=== PATIENT | male | born 1955 | race Caucasian/White ===

== ENCOUNTER → 2018-02-23 | Outpatient (CLI) | payer OTHER ==
[2018-02-23 12:19] LABS: HEMATOCRIT 41.5 % (42.0-52.0); HEMOGLOBIN 14.6 g/dl (13.5-17.5); MEAN CORPUSCULAR HEMOGLOBIN 31.1 pg (27.0-33.0); MEAN CORPUSCULAR HGB CONC 35.2 g/dl (32.0-36.5); MEAN CORPUSCULAR VOLUME 88.3 fl (80.0-96.0); PLATELET COUNT, AUTOMATED 285 10^3/uL (150-450); RED CELL DISTRIBUTION WIDTH 12.5 % (11.5-14.5); WHITE BLOOD COUNT 5.3 10^3/uL (4.0-10.0)
[2018-02-23 12:31] LABS: APPEARANCE, URINE CLEAR (CLEAR); BACTERIA, URINE AUTO NEGATIVE (NEGATIVE); BILIRUBIN, URINE AUTO NEGATIVE (NEGATIVE); BLOOD, URINE BLOOD NEGATIVE (NEGATIVE); COLOR, URINE YELLOW (YELLOW); GLUCOSE, URINE (UA) AUTO NEGATIVE (NEGATIVE); KETONE, URINE AUTO NEGATIVE (NEGATIVE); LEUKOCYTE ESTERASE, URINE AUTO NEGATIVE (NEGATIVE); MUCUS, URINE SMALL (NEGATIVE); NITRITE, URINE AUTO NEGATIVE (NEGATIVE); PROTEIN, URINE AUTO NEGATIVE (NEGATIVE); RBC, URINE AUTO 2 /HPF (0-3); SPECIFIC GRAVITY URINE AUTO 1.018 (1.002-1.035); SQUAMOUS EPITHELIAL CELL UR AU 0 /HPF (0-6); UROBILINOGEN, URINE AUTO 0.2 mg/dL (0.0-2.0); WBC, URINE AUTO 1 /HPF (0-3)
[2018-02-23 12:34] LABS: INR 0.89; PROTHROMBIN TIME 12.1 SECONDS (12.4-14.5)
[2018-02-23 12:55] LABS: ALBUMIN 3.7 GM/DL (3.2-5.2); ALBUMIN/GLOBULIN RATIO 1.42 (1.00-1.93); ALKALINE PHOSPHATASE 96 U/L (45-117); ALT/SGPT 46 U/L (12-78); ANION GAP 7 MEQ/L (8-16); AST/SGOT 40 U/L (7-37); BILIRUBIN,TOTAL 0.4 MG/DL (0.2-1.0); BLOOD UREA NITROGEN 24 MG/DL (7-18); CALCIUM LEVEL 8.6 MG/DL (8.8-10.2); CARBON DIOXIDE LEVEL 26 MEQ/L (21-32); CHLORIDE LEVEL 107 MEQ/L (98-107); CREATININE FOR GFR 0.79 MG/DL (0.70-1.30); GLOMERULAR FILTRATION RATE > 60.0 (>49); GLUCOSE, FASTING 91 MG/DL (70-100); POTASSIUM SERUM 4.3 MEQ/L (3.5-5.1); SODIUM LEVEL 140 MEQ/L (136-145); TOTAL PROTEIN 6.3 GM/DL (6.4-8.2)
[2018-02-23 13:17] LABS: ERYTHROCYTE SEDIMENTATION RATE 8 mm/hr (0-20)
== END ==
LOC: M ADMPAT 10:24
DX: M17.12 Unilateral primary osteoarthritis, left knee (principal)

== ENCOUNTER 2018-03-16 07:31 | Inpatient (IN) | payer OTHER ==
[2018-03-16] MEDS ORDERED: LIDOCAINE 1% MDV 20ML VIAL SQ (07:45)
[2018-03-16] MEDS ORDERED: MIDAZOLAM INJ 2 MG/2 ML VIAL (J2250) As Ordered ×2 (08:20→09:07)
[2018-03-16] MEDS ORDERED: fentaNYL 100 MCG/2 ML INJECTION (J3010) As Ordered ×2 (08:20→09:07)
[2018-03-16] MEDS: ACETAMINOPHEN 500 MG TAB PO (08:40)
[2018-03-16] MEDS: LR 1,000 ML IV ×3 (08:45→12:30)
[2018-03-16] MEDS: MIDAZOLAM INJ 2 MG/2 ML VIAL (J2250) IV (09:00)
[2018-03-16] MEDS: fentaNYL 100 MCG/2 ML INJECTION (J3010) IV (09:00)
[2018-03-16] MEDS ORDERED: PROPOFOL 200 MG/20 ML VIAL As Ordered (09:07)
[2018-03-16] MEDS: TRANEXAMIC ACID 100 MG/ML 10ML VIAL As Ordered (09:09)
[2018-03-16] MEDS: EPINEPHrine INJ 1 MG/ML 1ML AMP As Ordered (09:10)
[2018-03-16] MEDS: ceFAZolin 1GM INJ (J0690 PER 500MG) As Ordered (09:10)
[2018-03-16] MEDS ORDERED: MIDAZOLAM INJ 5 MG/ML VIAL (J2250) As Ordered (10:11)
[2018-03-16] MEDS ORDERED: ePHEDrine SULFATE 25 MG/5 ML(5MG/ML) SYRINGE As Ordered (10:42)
[2018-03-16] MEDS: BUPIVACAINE LIPOSOME/PF 1.3% 20 ML VIAL (13.3MG/ML)(EXPAREL) As Ordered (11:12)
[2018-03-16] MEDS: BUPIVACAINE HCL 0.25% 10 ML VIAL As Ordered (11:13)
[2018-03-16] MEDS ORDERED: MORPHINE 1MG/ML IN 0.9% NACL 100ML IV BAG As Ordered (12:11)
[2018-03-16] MEDS ORDERED: diphenhydrAMINE INJ 50MG/ML VIAL (J1200) IV (12:15)
[2018-03-16] MEDS ORDERED: NALBUPHINE HCL 10 MG/ML AMP (J2300) IV (12:15)
[2018-03-16] MEDS ORDERED: MORPHINE 1MG/ML IN 0.9% NACL 100ML IV BAG IV (12:15)
[2018-03-16] MEDS ORDERED: EPIDURAL/PCA KEYS XX (12:15)
[2018-03-16] MEDS ORDERED: ONDANSETRON 4MG/2ML VIAL (J2405) IV ×2 (12:15→12:30)
[2018-03-16] MEDS ORDERED: NALOXONE INJ 0.4 MG/1 ML VIAL (J2310) IV (12:15)
[2018-03-16] MEDS ORDERED: fentaNYL 100 MCG/2 ML INJECTION (J3010) IV (12:30)
[2018-03-16] MEDS ORDERED: KETOROLAC 30 MG/ML VIAL (J1885) IV (12:30)
[2018-03-16] MEDS ORDERED: FLEET ENEMA PR (12:30)
[2018-03-16] MEDS ORDERED: PERCOCET 5MG/325MG TAB PO (12:30)
[2018-03-16] MEDS ORDERED: ALBUTEROL 90 MCG/ACT 8GM HFA INHALER INH (13:00)
[2018-03-16] MEDS: WARFARIN SOD 5 MG TAB PO (16:10)
[2018-03-16] MEDS: ADVAIR HFA 115/21MCG INHALER INH (19:52)
[2018-03-16] MEDS ORDERED: traZODone 50 MG TAB PO (21:00)
[2018-03-16] MEDS: traZODone 100 MG TAB PO (21:11)
[2018-03-16] MEDS: SENOKOT S TAB PO (21:11)
[2018-03-16] MEDS: PRAVASTATIN 20 MG TAB PO (21:11)
[2018-03-17] MEDS: LR 1,000 ML IV (01:16)
[2018-03-17] MEDS: ACETAMINOPHEN TAB 650MG DOSE (2X325MG) PO (02:23)
[2018-03-17 05:33] LABS: HEMATOCRIT 35.9 % (42.0-52.0); HEMOGLOBIN 12.8 g/dl (13.5-17.5); MEAN CORPUSCULAR HEMOGLOBIN 31.4 pg (27.0-33.0); MEAN CORPUSCULAR HGB CONC 35.7 g/dl (32.0-36.5); MEAN CORPUSCULAR VOLUME 88.2 fl (80.0-96.0); PLATELET COUNT, AUTOMATED 212 10^3/uL (150-450); RED BLOOD COUNT 4.07 10^6/uL (4.30-6.10); RED CELL DISTRIBUTION WIDTH 12.1 % (11.5-14.5); WHITE BLOOD COUNT 7.5 10^3/uL (4.0-10.0)
[2018-03-17 05:46] LABS: INR 1.05; PROTHROMBIN TIME 13.8 SECONDS (12.4-14.5)
[2018-03-17 06:01] LABS: ANION GAP 6 MEQ/L (8-16); BLOOD UREA NITROGEN 18 MG/DL (7-18); CALCIUM LEVEL 8.2 MG/DL (8.8-10.2); CARBON DIOXIDE LEVEL 29 MEQ/L (21-32); CHLORIDE LEVEL 102 MEQ/L (98-107); CREATININE FOR GFR 0.88 MG/DL (0.70-1.30); FREE THYROXINE INDEX 4.8 % (1.4-3.8); GLOMERULAR FILTRATION RATE > 60.0 (>49); GLUCOSE, FASTING 116 MG/DL (70-100); MAGNESIUM LEVEL 1.8 MG/DL (1.8-2.4); POTASSIUM SERUM 4.1 MEQ/L (3.5-5.1); SODIUM LEVEL 137 MEQ/L (136-145); T UPTAKE 39 % (33-40); THYROID STIMULATING HORMONE 0.191 uIU/ML (0.358-3.740); THYROXINE (T4) 12.3 UG/DL (4.5-12.0)
[2018-03-17] MEDS: LEVOTHYROXINE 50MCG TABLET (0.05MG) PO (06:23)
[2018-03-17] MEDS ORDERED: PERCOCET 5MG/325MG TAB PO (07:00)
[2018-03-17] MEDS: PANTOPRAZOLE 40MG TAB (PROTONIX) PO (07:13)
[2018-03-17] MEDS: ADVAIR HFA 115/21MCG INHALER INH ×2 (07:45→21:00)
[2018-03-17] MEDS: ONDANSETRON 4MG/2ML VIAL (J2405) IV (07:57)
[2018-03-17] MEDS ORDERED: ONDANSETRON 4 MG TAB (S0181) PO (08:00)
[2018-03-17] MEDS: INCRUSE ELLIPTA INH (09:00)
[2018-03-17] MEDS ORDERED: PANTOPRAZOLE 40MG TAB (PROTONIX) PO (09:00)
[2018-03-17] MEDS ORDERED: LEVOTHYROXINE 100MCG TABLET (0.1MG) PO (09:00)
[2018-03-17] MEDS: MECLIZINE 25 MG TABLET PO (09:46)
[2018-03-17] MEDS: MOM 30ML SUSPENSION UDC PO (09:46)
[2018-03-17] MEDS: MIRALAX *UNIT DOSE* 17GM PACKET PO (09:46)
[2018-03-17] MEDS: PERCOCET 5MG/325MG TAB PO ×4 (09:46→22:57)
[2018-03-17] MEDS: SENOKOT S TAB PO ×2 (09:46→21:37)
[2018-03-17] MEDS: ONDANSETRON 4 MG TAB (S0181) PO ×2 (12:34→18:30)
[2018-03-17] MEDS: WARFARIN SOD 5 MG TAB PO (17:47)
[2018-03-17] MEDS: traZODone 100 MG TAB PO (21:36)
[2018-03-17] MEDS: PRAVASTATIN 20 MG TAB PO (21:37)
[2018-03-18] MEDS: PERCOCET 5MG/325MG TAB PO ×2 (03:23→09:06)
[2018-03-18 06:20] LABS: HEMATOCRIT 35.8 % (42.0-52.0); HEMOGLOBIN 12.4 g/dl (13.5-17.5); MEAN CORPUSCULAR HGB CONC 34.6 g/dl (32.0-36.5); MEAN CORPUSCULAR VOLUME 89.5 fl (80.0-96.0); PLATELET COUNT, AUTOMATED 202 10^3/uL (150-450); RED CELL DISTRIBUTION WIDTH 12.2 % (11.5-14.5); WHITE BLOOD COUNT 8.3 10^3/uL (4.0-10.0)
[2018-03-18] MEDS: PANTOPRAZOLE 40MG TAB (PROTONIX) PO (06:26)
[2018-03-18] MEDS: LEVOTHYROXINE 37.5MCG PER 1/2TAB (0.0375MG) PO (06:26)
[2018-03-18 06:30] LABS: INR 1.22; PROTHROMBIN TIME 15.6 SECONDS (12.4-14.5)
[2018-03-18 06:55] LABS: ANION GAP 4 MEQ/L (8-16); BLOOD UREA NITROGEN 14 MG/DL (7-18); CALCIUM LEVEL 8.3 MG/DL (8.8-10.2); CARBON DIOXIDE LEVEL 32 MEQ/L (21-32); CHLORIDE LEVEL 102 MEQ/L (98-107); CREATININE FOR GFR 0.82 MG/DL (0.70-1.30); GLOMERULAR FILTRATION RATE > 60.0 (>49); GLUCOSE, FASTING 111 MG/DL (70-100); MAGNESIUM LEVEL 2.3 MG/DL (1.8-2.4); POTASSIUM SERUM 4.1 MEQ/L (3.5-5.1); SODIUM LEVEL 138 MEQ/L (136-145)
[2018-03-18] MEDS: ADVAIR HFA 115/21MCG INHALER INH (07:08)
[2018-03-18] MEDS: INCRUSE ELLIPTA INH (07:08)
[2018-03-18] MEDS: ENOXAPARIN 40 MG/0.4 ML SYRINGE (J1650) SC (09:05)
[2018-03-18] MEDS: MIRALAX *UNIT DOSE* 17GM PACKET PO (09:05)
[2018-03-18] MEDS: MOM 30ML SUSPENSION UDC PO (09:05)
[2018-03-18] MEDS: SENOKOT S TAB PO (09:06)
[2018-03-18] MEDS: MECLIZINE 25 MG TABLET PO (09:06)
== END 2018-03-18 12:30 | disposition home or self-care (01) | DRG 470 ==
LOC: M OR 07:31 → M MS5PR 12:45
PROC: 0SRD0J9 Replacement of Left Knee Joint with Synthetic Substitute, Cemented, Open Approach (ICD-10-PCS; principal; 2018-03-16 09:57)
DX: M17.12 Unilateral primary osteoarthritis, left knee (principal); I10 Essential (primary) hypertension; E78.5 Hyperlipidemia, unspecified; J44.9 Chronic obstructive pulmonary disease, unspecified; E03.9 Hypothyroidism, unspecified; G47.33 Obstructive sleep apnea (adult) (pediatric); K44.9 Diaphragmatic hernia without obstruction or gangrene; M54.5 Low back pain; Z88.1 Allergy status to other antibiotic agents; Z88.8 Allergy status to other drugs, medicaments and biological substances; Z87.891 Personal history of nicotine dependence; Z79.899 Other long term (current) drug therapy

== ENCOUNTER → 2020-12-30 | Outpatient (CLI) | payer MEDICARE, OTHER ==
[~2020-12-30] MED LIST: ADV250INH INH; ALEV220T26 PO; AMOX500T2; CELE1CAP4 PO; CELE1CAP9; COUM2.5T17 PO; DOXY-350 PO; INCR1INH INH; LEVO200T4 PO; LEVO50TA5 PO; MECL-86 PO; METF-838; PANT40TA29 PO; PERC5TAB12 PO; PERCOCET PO; PRAV40TA2 PO; PROAAER10 INH; TRAZ-252 PO; TRAZ-257 PO; VALS160T2
== END ==
LOC: M LABSMTC 11:33
PROVIDERS: ATTEND Anesthesiology
DX: Z01.812 Encounter for preprocedural laboratory examination (principal); Z20.822 Contact with and (suspected) exposure to COVID-19

== ENCOUNTER 2021-01-04 10:53 | Day surgery (SDC) | payer MEDICARE, OTHER ==
[~2021-01-04] VITALS: Ht 180.3 cm; Wt 114.2 kg
[~2021-01-04 10:53] MED LIST changes: -DOXY-350 PO; +LIDOCAINE 1% MDV 20ML VIAL SQ PRN; +LIDOCAINE 2% 100MG/5ML SDV (FOR ANES.) As Ordered ONE; +MIDAZOLAM INJ 2MG/2ML VIAL (J2250 PER 1MG) As Ordered ONE; -PERCOCET PO; +ROCURONIUM BROMIDE 50 MG/5 ML VIAL As Ordered ONE; +fentaNYL 250 MCG/5 ML INJECTION (J3010) As Ordered ONE; +propofoL 200 MG/20 ML VIAL As Ordered ONE
[2021-01-04] MEDS ORDERED: LR 1,000 ML IV ONE (11:30)
[2021-01-04] MEDS ORDERED: DOXY-350 PO (11:49)
[2021-01-04] MEDS ORDERED: PERCOCET PO (11:49)
[2021-01-04] MEDS ORDERED: EPINEPHrine INJ 1 MG/ML 1ML AMP As Ordered ONE (13:45)
[2021-01-04] MEDS ORDERED: LIDOCAINE W/EPINEPHRINE 1% 20ML VIAL As Ordered ONE (13:45)
[2021-01-04] MEDS ORDERED: METHYLENE BLUE 0.5% (5MG/ML) 10 ML AMP (PROVAYBLUE) As Ordered ONE (13:46)
[2021-01-04] MEDS ORDERED: OXYMETAZOLINE 0.05% NASAL SPRAY (AFRIN) As Ordered ONE ×2 (13:46→15:22)
[2021-01-04] MEDS ORDERED: ACETAMINOPHEN 1000MG 100ML IV BTL (OFIRMEV) (J0131 PER 10MG) As Ordered ONE (15:00)
[2021-01-04] MEDS ORDERED: dexameTHASONE 4 MG/ML 1ML VIAL (J1100 PER 1MG) As Ordered ONE (15:00)
[2021-01-04] MEDS ORDERED: ONDANSETRON 4MG/2ML VIAL As Ordered ONE (15:00)
[2021-01-04] MEDS ORDERED: SUGAMMADEX SODIUM 500 MG/5 ML VIAL (BRIDION) As Ordered ONE (15:01)
[2021-01-04] MEDS ORDERED: KETOROLAC 30 MG/ML 1ML VIAL IV PRN (15:30)
[2021-01-04] MEDS ORDERED: fentaNYL 100 MCG/2 ML INJECTION (J3010) IV PRN (16:30)
[2021-01-04] MEDS ORDERED: LR 1,000 ML IV SCH (16:30)
[2021-01-04] MEDS ORDERED: ONDANSETRON 4MG/2ML VIAL IV PRN (16:30)
[2021-01-04] MEDS ORDERED: PERCOCET 5MG/325MG TAB PO PRN ×2 (16:30→16:45)
[2021-01-04] MEDS ORDERED: METOCLOPRAMIDE INJ 10MG/2ML VIAL (J2765 PER 1) IV PRN (16:30)
[2021-01-04 17:05] VITALS: BP 131/79
--- NOTE | 2021-01-12 12:34 | RO ---
OPERATIVE NOTE DATE OF OPERATION: 01/04/2021 PREOPERATIVE DIAGNOSIS: Chronic sinusitis, deviated septum. POSTOPERATIVE DIAGNOSIS: Chronic sinusitis, deviated septum. PROCEDURE: Bilateral total endoscopic ethmoidectomy and antrostomy with septoplasty. SURGEON: Walter Johns MD. COMMUNICATION ARTS LECTURER: ANESTHESIA: INDICATIONS: A 65 year old who presents with long history of nasal obstruction and mucopurulent drainage from the nose for a great length of time unresponsive to medical therapy. DESCRIPTION OF PROCEDURE: Satisfactory general endotracheal anesthesia was administered. Pharyngeal pack was placed, and the nose prepared for surgery by placing cotton soaked pledgets with Afrin solution to the nasal cavity bilaterally. One percent Xylocaine with 1:100,000 epinephrine was used to inject the nasal septum and inferior turbinates. A [place] incision was made on the left side of the nose. A mucoperichondrial flap and envelope was created on the left side of the nasal septum and carried down to the junction of the bony and cartilaginous septum. This was then with an elevator, and an envelope was then created on the right side of the septum. Chelsie scissors were used to make a cut high in the perpendicular plate in the midportion of the vomer, and a central segment of the bony septum was resected. Next, with the round knife on the [place]isa elevator, a strip of cartilage was resected from the floor of the nose, mobilizing the quadrilateral cartilage and creating a swinging door. Then, a central segment of the cartilaginous septum was resected, preserving a 1 cm dorsal and caudal strut. Double-action rongeur was used to take down deflected portions of the perpendicular plate, as well. Finally, the maxillary crest spur was taken down after elevating mucoperiostium off both sides of it with a chisel. A segment of the resected cartilage was morselized and placed back into the septal envelop. The incision was closed using an interrupted #5-0 chromic suture. Then, a #4-0 plain suture was placed in a [id number]-[id number] fashion through the two leaves of mucoperichondrium to appose them. Next, turbinate surgery done. He had markedly hypertrophic turbinates. They were medially infractured and using the turbinate Coblator probe, two parallel passes of the probe were made with 10 second coblation times for each of the set points of the probe. Finally, suction cautery used to coagulate the posterior inferior tip of the inferior turbinate. A #15 blade was used to make an incision on the anterior tip of the inferior turbinate. Rivas splints were placed in the nose and sewn to the columellar with #2-0 Prolene suture. The pharyngeal pack was removed and the throat suctioned. The patient was awakened, extubated, and sent to recovery in satisfactory condition. After completing the septoplasty surgery, endoscopic surgery was started first on the left side. The 0 degree telescope was used, and the microdebrider was the primary dissecting instrument. One percent Xylocaine with epinephrine was injected into the lateral nasal wall. First, the microdebrider was used to take down the uncinate process. Then the ethmoid bulla was perforated and then resected away completely. This gave excellent exposure of the lateral nasal wall. Ground lamella was then perforated with the microdebrider, and the posterior ethmoid cells were noted. Then working anteriorly to posteriorly to anteriorly following the skull base, the lamina papyracea, lamella of bone, and hyperplastic mucosa was resected. Superiorly and anteriorly the superior bulla ethmoid cell was opened and the remnant of uncinate process taken down. Next, the natural maxillary sinus ostium was identified. It was enlarged using a combination of side biting and up biting forceps. Adrenalin pledgets were placed on this side of the nose. An identical procedure was performed on the right side of the nose. The middle turbinates were preserved in both cases on both sides. After removal of the adrenalin pledgets, NasoPore packing was placed on each side of the nose for support. The pharyngeal pack was removed and throat suctioned. Patient was awakened, extubated, and sent to the recovery room in satisfactory condition. PLAN: She was given Percocet for pain and doxycycline 100 mg b.i.d. She will be seen in the office in one week.
== END 2021-01-04 17:05 | disposition home or self-care (01) ==
LOC: M SDC 10:53
PROVIDERS: ATTEND Specialist
DX: J34.2 Deviated nasal septum (principal); J32.9 Chronic sinusitis, unspecified; E78.5 Hyperlipidemia, unspecified; I10 Essential (primary) hypertension; E03.9 Hypothyroidism, unspecified; K21.9 Gastro-esophageal reflux disease without esophagitis; J44.9 Chronic obstructive pulmonary disease, unspecified; F17.220 Nicotine dependence, chewing tobacco, uncomplicated; G47.33 Obstructive sleep apnea (adult) (pediatric); Z79.84 Long term (current) use of oral hypoglycemic drugs; Z79.899 Other long term (current) drug therapy; Z88.1 Allergy status to other antibiotic agents; Z88.8 Allergy status to other drugs, medicaments and biological substances
CPT/HCPCS: 30520; 31255; 31267; 88300; J0131; J0171; J1100; J2250; J2405; J3010; Q9968